=== PATIENT | female | born 1950 | race Caucasian/White ===

== ENCOUNTER 2022-03-30 10:25 | Emergency (ER) | payer MEDICARE, BC ==
[~2022-03-30] VITALS: Ht 152.4 cm; Wt 61.2 kg
--- NOTE | 2022-03-30 10:37 | NUR ---
PT SEEN AND EVALUATED BY DR RONQUILLO.
[2022-03-30] MEDS ORDERED: CYCLOBENZAPRINE HCL 10 MG TABLET PO ONE (10:45)
[2022-03-30] MEDS ORDERED: KETOROLAC TROMETHAMINE 15 MG INJ IM ONE (10:45)
[2022-03-30] MEDS ORDERED: KETOROLAC TROMETHAMINE 15 MG INJ ONE (10:51)
[2022-03-30] MEDS ORDERED: CYCLOBENZAPRINE HCL 10 MG TABLET ONE (10:51)
--- NOTE | 2022-03-30 10:59 | NUR ---
PT REMAINS AWAKE AND ALERT. MEDICATED FOR PAIN ASPER MD ORDER.
[2022-03-30] MEDS ORDERED: HYDROCODONE/APAP 5-325MG TABLET PO ONE (13:00)
[2022-03-30] MEDS ORDERED: HYDROCODONE/APAP 5-325MG TABLET ONE (13:03)
[2022-03-30] MEDS ORDERED: OXYC5TAB3 PO (13:31)
[2022-03-30] MEDS ORDERED: CYCL5TAB PO (13:31)
[2022-03-30] MEDS ORDERED: NAPR-1192 PO (13:31)
[2022-03-30] MEDS ORDERED: FAMO-132 PO (13:31)
[2022-03-30] MEDS ORDERED: TLSO BRACE EXT (13:37)
--- NOTE | 2022-03-30 14:46 | NUR ---
pt was assisted to the bathroom, was able to get out of bed by herself and walked to restroom with a walker. pt was steady with walker. pt discharged from ED with walker. Patient discharged to home in stable condition. Written and verbal after care instructions given. Patient verbalizes understanding of instructions. Stressed follow up or return to ER for worsening s/s.
== END 2022-03-30 14:58 | disposition home or self-care (01) ==
LOC: ER 10:25
DX: S32.019A Unspecified fracture of first lumbar vertebra, initial encounter for closed fracture (principal); T14.8XXA Other injury of unspecified body region, initial encounter; W01.0XXA Fall on same level from slipping, tripping and stumbling without subsequent striking against object, initial encounter; Y93.H2 Activity, gardening and landscaping; Y92.89 Other specified places as the place of occurrence of the external cause; Z85.3 Personal history of malignant neoplasm of breast; Z90.11 Acquired absence of right breast and nipple; M48.061 Spinal stenosis, lumbar region without neurogenic claudication
CPT/HCPCS: 99284; 72131; 96372; J1885; A4663